=== PATIENT | female | born 1985 ===

== ENCOUNTER 2016-12-04 11:46 | Emergency (ER) | payer SELFPAY ==
--- NOTE | 2016-12-08 11:27 | ER ---
ADMIT: 12/04/2016 RM/LOC: ER [facility] MR#: [id number] [place], [place] [id number] JEFF TRISTAN [address] [place] [address] Emergency Room Report SEX: F AGE: 31 : 1985 DATE: 12/04/2016 ADDENDUM: CHIEF COMPLAINT: Dizziness. HISTORY OF PRESENT ILLNESS: This is a 31-year-old, who has been to the ER before for these prior symptoms. The lab work was done, everything was negative at that time. She says in the last 2 weeks, she has just noticed that her blood pressures have been a little bit low and she was dizzy at times. Today she was at school and she said she felt very lightheaded. They checked her blood pressure and it was 90/60, so she came to the ER. COURSE IN THE EMERGENCY ROOM: CBC, BMP, urine, TSH, T4 was done, everything is negative. EKG showed that she was sinus jessica. I am having her followup with her primary care provider who is Barbara Agarwal. She said she will see her later this week. CLINICAL IMPRESSION: 1. Near syncope. 2. Bradycardia. DISPOSITION: I am going to send her home on a Holter monitor and follow up with Barbara Agarwal again this week. MARILYN Hearn / Eladio Sher MD / naell JOB #: [id number] CC: Eladio Sher MD, Attending Physician UNKNOWN, Family Physician
== END 2016-12-04 15:55 | disposition home or self-care (01) ==
LOC: ER 11:46
DX: R00.1 Bradycardia, unspecified (principal)